=== PATIENT | female | born 1970 | race Caucasian/White ===

== ENCOUNTER → 2018-01-17 16:45 | Outpatient (CLI) | payer BC, SELFPAY ==
[2018-01-17 17:35] LABS: Anion Gap 5.3 mEq/L (5-15); Blood Urea Nitrogen 8 mg/dL (7-18); Calcium 9.1 mg/dL (8.5-10.1); Carbon Dioxide 34 mmol/L (21.0-32.0); Chloride 101 mmol/L (98-107); Creatinine,Serum 0.89 mg/dL (0.55-1.02); Estimated Glomerular Filt Rate 67 ml/min (>60); GFR (African American) 82 ML/MIN (>60); Glucose 95 mg/dL (74-106); Potassium 3.3 mmoL/L (3.5-5.1); Sodium 137 mmol/L (136-145)
== END ==
PROVIDERS: PCP Nurse Practitioner Family; Visit Provider Internal Medicine Adolescent Medicine
DX: R55 Syncope and collapse (principal)
CPT/HCPCS: 36415; 80048

== ENCOUNTER → 2018-12-08 12:32 | Outpatient (CLI) | payer BC, SELFPAY ==
[2018-12-08 14:36] LABS: Alanine Aminotransferase 36 U/L (12-78); Albumin Level 3.7 gm/dL (3.4-5.0); Alkaline Phosphatase 54 U/L (46-116); Anion Gap 9.4 mEq/L (5-15); Aspartate Amino Transferase 15 U/L (15-37); Bilirubin,Total 0.4 mg/dL (0.2-1.0); Blood Urea Nitrogen 12 mg/dL (7-18); Calcium 9.4 mg/dL (8.5-10.1); Carbon Dioxide 34 mmol/L (21.0-32.0); Chloride 99 mmol/L (98-107); Chol/HDL Ratio 3.3 (1-3.5); Cholesterol 231 mg/dL (140-200); Creatinine,Serum 1.07 mg/dL (0.55-1.02); Estimated Glomerular Filt Rate 54 ml/min (>60); GFR (African American) 66 ML/MIN (>60); Globulin 3.8 gm/dl (1.3-3.2); Glucose 97 mg/dL (74-106); HDL Cholesterol 69 mg/dL (29-89); LDL Cholesterol 135 mg/dL (0-130); Potassium 3.4 mmoL/L (3.5-5.1); Sodium 139 mmol/L (136-145); Total Protein,Serum 7.5 gm/dL (6.4-8.2); Triglycerides 133 mg/dL (30-200); VLDL Cholesterol 27 mg/dL (0-40)
== END ==
PROVIDERS: Visit Provider Nurse Practitioner Family
DX: Z00.00 Encounter for general adult medical examination without abnormal findings (principal)
CPT/HCPCS: 36415; 80053; 80061

== ENCOUNTER → 2019-09-04 10:42 | Outpatient (CLI) | payer BC, SELFPAY ==
[2019-09-04 11:00] LABS: Basophils # 0.1 K/mm3 (0-0.2); Basophils % 1.6 % (0.1-2.0); Eosinophils % 0.3 % (0.1-12.0); Hemoglobin 12.7 g/dL (12.2-16.2); Lymphocytes % 38.1 % (10-50); Mean Corpuscular HGB Conc 32.7 g/dL (31.8-35.4); Mean Corpuscular Hemoglobin 28.7 pg (27.0-31.2); Mean Corpuscular Volume 87.9 fl (81-99); Mean Platelet Volume 7.3 fl (7.4-10.4); Monocytes # 0.3 K/mm3 (0.1-1.0); Neutrophils # 2.9 K/mm3 (1.8-7.8); Neutrophils % 54.1 % (37.0-80.0); Platelet Count 342 K/mm3 (142-424); Red Blood Count 4.44 M/mm3 (4.20-5.40); Red Cell Distribution Width 12.8 % (11.5-17.5); White Blood Count 5.3 K/mm3 (4.8-10.8)
[2019-09-04 12:19] LABS: Chloride 100 mmol/L (98-107)
[2019-09-04 12:20] LABS: Potassium 3.6 mmoL/L (3.5-5.1); Sodium 139 mmol/L (136-145)
[2019-09-04 12:22] LABS: Alanine Aminotransferase 24 U/L (12-78); Anion Gap 9.6 mEq/L (5-15); Aspartate Amino Transferase 27 U/L (14-36); Blood Urea Nitrogen 16 mg/dl (7-17); Carbon Dioxide 33 mmol/L (22.0-30.0); Estimated Glomerular Filt Rate 58 ml/min (>60); GFR (African American) 71 ML/MIN (>60)
[2019-09-04 12:23] LABS: Albumin Level 4.2 g/dl (3.5-5.0); Albumin/Globulin Ratio 1.4 (1.1-1.8); Alkaline Phosphatase 58 U/L (38-126); Bilirubin,Total 0.3 mg/dl (0.2-1.3); Calcium 9.9 mg/dl (8.4-10.2); Chol/HDL Ratio 2.8 (1-3.5); Cholesterol 201 mg/dl (140-200); Glucose 110 mg/dl (74-100); HDL Cholesterol 71 mg/dl (40-60); Total Protein,Serum 7.2 g/dl (6.3-8.2); Triglycerides 142 mg/dl (30-150); VLDL Cholesterol 28 mg/dL (0-40)
[2019-09-04 12:34] LABS: Direct LDL Cholesterol 105.55 mg/dL (100-129)
== END ==
PROVIDERS: Visit Provider Nurse Practitioner Family
DX: R60.9 Edema, unspecified (principal); E78.5 Hyperlipidemia, unspecified
CPT/HCPCS: 36415; 80053; 80061; 85025

== ENCOUNTER 2019-11-26 11:00 | Outpatient (RCR) | payer BC, SELFPAY ==
--- NOTE | 2019-09-04 10:28 | HMH.PTOPEV ---
PT Outpatient Evaluation Rehab PT Outpatient Evaluation Start: 09/04/19 09:11 Freq: Status: Active Protocol: Document 09/04/19 09:11 ERIC (Rec: 09/04/19 10:28 ERIC [id number]) Electronically Signed By Floyd Edwards, PT 09/04/19 09:11 Outpatient Therapy Subjective History Subjective History Pt reports h/o chronic LBP, R sided, for the last ~2 yrs ' since I had to wear a walking boot for a chronic foot issue' . Pt reports exacerbation of R sided LBP over the last ~4 weeks with radicular s/s from hip to mid thigh (lateral). Pt also reports point tenderness at R grt tro., and inability to tolerate R sidelying. Chief Complaint Pain,Stiff Symptom Type Ache,Sharp,Dull Symptoms Relieved By OTC Meds Symptoms Aggravated By Bending/Stooping,Physical Activity,Twisting,Lifting Prior Functional Limitations Lifting Current Functional Limitations Lifting,Housework,Recreation Activity,Walking Symptom Description Constant but Variable Level of pain today (0-10) 7 Pain scale - at its best (0-10) 3 Pain scale - at its worst (0-10) 8 Lumbopelvic Eval Posture Thoracic Spine Posture Standing Position Neutral Lumbar Spine Posture Standing Position Neutral Assistive device Assistive Devices None / NA Gait Observation General Gait Pattern Observation No Deviations/Normal Palapation tenderness left paraspinal tenderness Yes: 1-2/4 right lumbar spinal tenderness Yes: 1/4 paraspinal tenderness Yes: 3/4 buttock tenderness Yes: 3/4 Lumbar/Sacral Palpation Findings Tenderness,Trigger Point Accessory Movement L-spine Vertebrae Accessory Movements Central P/A Lillian that Elicit Symptoms S1 right Range of Motion Lumbar Spine Active Flexion Range of 0-35 Motion (degrees) Lumbar Spine Active Extension Range of 0-15 Motion (degrees) Left Lumbar Spine Lateral Flexion Active 0-20 Range of Motion (degrees) Right Lumbar Spine Lateral Flexion 0-15 Active Range of Motion (degrees) Lumbar Spine ROM Limitations Pain Manual Muscle Test Right Knee Extension Strength Grade 5 Normal Knee Flexion Strength Grade 4- Good- Hip Flexion Strength Grade 4- Good- Hip Abduction Strength Grade 3+ Fair+ Hip Adduction Strength Grade 4 Good Hip External Rotation Strength Grade 4- Good- Hip Internal Rotation Strength Grade 4- Good-
--- NOTE | 2019-10-02 13:39 | HMH.RHREAS ---
Rehab Reassessment Rehab OP Re-assessment Start: 10/02/19 12:58 Freq: Status: Active Protocol: Document 10/02/19 13:29 ERIC (Rec: 10/02/19 13:38 [email or web address] [id number]) Electronically Signed By Floyd Edwards, PT 10/02/19 13:29 Rehab Re-assessment Subjective Subjective PT REPORTS 4/10 R HIP PAIN ON VAS W/ACTIVITY, AND FEELS 50- 60% BETTER OVERALL SINCE I EVAL Objective Objective Notes AROM: L-SPINE FLX 0-50, EXT 0- 20, B SB 0-30 MMT: R HIP FLX 4-4+/5, HIP ADD /EXT/ABD 4/5, HIP IR/ER 4/5 TTP: R PIRI 1-2/4, R LUMBAR PARA 0-1/4 Assessment Progress Assessment Progressing as Expected Assessment Notes PT W/IMPROVED STRENGTH, ROM, ADN TTP Patient goals met STG'S 10/23 LTG'S 07/27 Goals Not Met LTG'S 11/26 Plan Plan PT TO CONT. W/SKILLED P.T. TO MAKE FURTHER IMPROVEMENTS IN AROM, STRENGTH, AND TTP TO ALLOW FOR OPTIMAL FUNCTION Frequency of Therapy 1-2X/WK Duration of therapy 3-4 WKS Time and Billing Re-Eval Time 15 Re-Eval Billing Units 1 PHYSICIAN CERTIFICATION: I certify the specified therapy services for Chiam Sevilla are required, authorized, and reviewed every 30 days.
--- NOTE | 2019-11-03 11:19 | HMH.RHREAS ---
Rehab Reassessment Rehab OP Re-assessment Start: 10/02/19 12:58 Freq: Status: Active Protocol: Document 11/03/19 10:58 ERIC (Rec: 11/03/19 11:19 ERIC [id number]) Electronically Signed By Floyd Edwards, PT 11/03/19 10:58 Rehab Re-assessment Subjective Subjective PT REPORTS SLIGHT IMPROVEMENT IN LBP/R HIP PAIN SINCE LAST REASSESS. @2-3/10 ON VAS, AND AGAIN FEELS ~60% BETTER OVERALL Objective Objective Notes AROM: L-SPINE FLX 0-50, EXT 0- 25, B SB 0-30 MMT: R HIP FLX 4-4+/5, HIP ADD /EXT/ABD 4/5, HIP IR/ER 4/5 TTP: R PIRI 1-2/4, R LUMBAR PARA 0-4 Assessment Progress Assessment Slower Than Expected Assessment Notes PT W/SLIGHT IMPROVEMENT IN L- SPINE AROM Patient goals met STG'S 10/23 LTG'S 08/27 Goals Not Met LTG'S 10/27 Plan Plan PT TO CONT. W/SKILLED P.T. TO MAKE FURTHER IMPROVEMENTS IN AROM, STRENGTH, AND TTP TO ALLOW FOR OPTIMAL FUNCTION Frequency of Therapy 1-2X/WK Duration of therapy 3-4 WKS Time and Billing Re-Eval Time 15 Re-Eval Billing Units 1 PHYSICIAN CERTIFICATION: I certify the specified therapy services for Chaim Sevilla are required, authorized, and reviewed every 30 days.
== END 2019-11-26 11:05 | disposition home or self-care (01) ==
LOC: PT 11:00
PROVIDERS: PCP Nurse Practitioner Family; Visit Provider Nurse Practitioner Family
DX: M53.3 Sacrococcygeal disorders, not elsewhere classified (principal); M70.61 Trochanteric bursitis, right hip
CPT/HCPCS: 20560; 20561; 97010; 97012; 97014; 97033; 97035; 97110; 97140; 97163; 97164; G0283

== ENCOUNTER → 2020-07-04 13:03 | Outpatient (CLI) | payer BC, SELFPAY ==
[2020-07-04 14:09] LABS: Hemoglobin A1C 5.3 % (4.0-6.0)
[2020-07-04 14:20] LABS: Chloride 100 mmol/L (98-107); Potassium 4.3 mmoL/L (3.5-5.1); Sodium 139 mmol/L (136-145)
[2020-07-04 14:22] LABS: Blood Urea Nitrogen 14 mg/dl (7-17); Estimated Glomerular Filt Rate 52 ml/min (>60); GFR (African American) 63 ML/MIN (>60)
[2020-07-04 14:23] LABS: Alanine Aminotransferase 17 U/L (12-78); Albumin Level 4.5 g/dl (3.5-5.0); Albumin/Globulin Ratio 1.3 (1.1-1.8); Alkaline Phosphatase 70 U/L (38-126); Anion Gap 7.3 mEq/L (5-15); Aspartate Amino Transferase 26 U/L (14-36); Bilirubin,Total 0.5 mg/dl (0.2-1.3); Carbon Dioxide 36 mmol/L (22.0-30.0); Cholesterol 226 mg/dl (140-200); Globulin 3.4 g/dL (1.3-3.2); Total Protein,Serum 7.9 g/dl (6.3-8.2); Triglycerides 187 mg/dl (30-150); VLDL Cholesterol 37 mg/dL (0-40)
[2020-07-04 14:24] LABS: Calcium 10.3 mg/dl (8.4-10.2); Chol/HDL Ratio 3.2 (1-3.5); Glucose 109 mg/dl (74-100); HDL Cholesterol 71 mg/dl (40-60)
[2020-07-04 14:35] LABS: Direct LDL Cholesterol 101.63 mg/dL (100-129)
[2020-07-04 14:54] LABS: Thyroid Stimulating Hormone 1.08 uIU/mL (0.465-4.68)
[2020-07-04 14:58] LABS: Basophils # 0.1 K/mm3 (0-0.2); Basophils % 1.1 % (0.1-2.0); Eosinophils % 0.2 % (0.1-12.0); Hematocrit 41.8 % (37.0-47.0); Hemoglobin 13.6 g/dL (12.2-16.2); Lymphocytes # 2.1 K/mm3 (0.7-4.5); Lymphocytes % 36.4 % (10-50); Mean Corpuscular HGB Conc 32.6 g/dL (31.8-35.4); Mean Corpuscular Hemoglobin 28.9 pg (27.0-31.2); Mean Corpuscular Volume 88.6 fl (81-99); Mean Platelet Volume 7.4 fl (7.4-10.4); Monocytes # 0.3 K/mm3 (0.1-1.0); Monocytes % 5.7 % (1.7-9.3); Neutrophils # 3.3 K/mm3 (1.8-7.8); Neutrophils % 56.7 % (37.0-80.0); Platelet Count 375 K/mm3 (142-424); Red Blood Count 4.72 M/mm3 (4.20-5.40); Red Cell Distribution Width 13.3 % (11.5-17.5); White Blood Count 5.7 K/mm3 (4.8-10.8)
== END ==
PROVIDERS: Visit Provider Nurse Practitioner Family
DX: R60.9 Edema, unspecified (principal); R73.9 Hyperglycemia, unspecified
CPT/HCPCS: 36415; 80053; 80061; 83036; 84443; 85025

== ENCOUNTER 2020-08-01 16:57 | Emergency (ER) | payer BC, SELFPAY ==
[2020-08-01 17:23] VITALS: BP 113/40; PULSE 76; RESP 20; TEMP 36.7; O2SAT 98; BMI 29.9
--- NOTE | 2020-08-01 17:23 | XR_ITS ---
PROCEDURE: XR FEMUR LT 2V CLINICAL INDICATION: DOG PULLED HER Pain COMPARISON: No exams were available for comparison FINDINGS: No fracture or dislocation. No lytic or blastic change. There is normal mineralization. The joint spaces are well-preserved. No significant degenerative/arthritic changes. No erosive changes evident. Other findings:None. IMPRESSION: No acute findings. Dictated by: Dustin Lincoln MD 08/01/2020 20:24 Dustin Lincoln MD in [place] 08/01/2020 20:24
--- NOTE | 2020-08-01 17:55 | HMH.EDUTC ---
[facility] [place] Disposition Clinical Impression: Hamstring muscle strain Qualifiers: Encounter type: initial encounter Laterality: left Qualified Code(s): S76.312A - Strain of muscle, fascia and tendon of the posterior muscle group at thigh level, left thigh, initial encounter Disposition: Home, Self-Care Condition on Discharge: Good Instructions: Hamstrings Strain, DI for Hamstring Strain Additional Instructions: *weight bearing as tolerated *RICE, Rest the extremity, Ice 15-20 minutes 3-4 times daily, Compress- wear the reji wrap as discussed as much as possible to help reduce swelling and pain, Elevate the extremity when at rest *Reji wrap is for support and help control swelling, use it except in the shower. Be sure that is not to tight but not to loose either *Elevate when resting *Ibuprofen every 6-8 hours as needed for pain an inflammation if you can take it if not or If need something more can take Tylenol in between doses of Ibuprofen to help Immediately follow up with your family doctor for new or worsening of symptoms, or no noticeable improvement over the next 3-5 days Take a break from strenuous activities to allow the injury to heal. Use crutches to avoiding putting your full weight on your injured leg. Apply ice packs several times a day to relieve pain and reduce swelling. Wrap the injured area with a compression bandage or wear compression shorts to minimize swelling. Rest with your leg elevated above the level of your heart, if possible, to improve drainage and minimize swelling. Take an [id number] pain medication, such as ibuprofen (Advil, Motrin IB, others) or acetaminophen (Tylenol, others), to reduce pain and inflammation Soak in warm water and epson salt may help with pain and tenderness Return if needed Straight to ER if any life threatening symptoms Referrals: Mali Guerrero APRN [Primary Care Provider] - As needed Time of Disposition: 18:00 Medical Decision Making - Nelson Inquiry Pt receiving controlled substance: No Nelson was queried for this patient: No Vital Signs: 08/01/20 17:23 08/01/20 18:20 Temperature 98.0 F 98.0 F Temperature Source Oral Pulse Rate 76 Pulse Rate [Right Brachial] 76 Respiratory Rate 20 20 Blood Pressure 113/40 L Blood Pressure [Right Arm] 113/40 L Blood Pressure Mean [Right Arm] 64 Blood Pressure Source [Right Arm] Automatic Cuff Blood Pressure Position [Right Arm] Sitting 02 Sat by Pulse Oximetry 98 Oxygen Delivery Method Room Air Orders (Tests/Meds): ORDERS Category Date Time Status XR femur LT 2V Stat Exams 08/01/20 17:23 Taken - Radiology Data #1 Image(s): Femur Image Reviewed: Yes I reviewed the patient's radiology image Preliminary Findings: No Fracture Seen [facility] [place] HPI - General Stated complaint: AO03/13@1400 fall, left leg injury Time Seen by Provider: 08/01/20 17:55 Mode of Arrival: Ambulatory Source of Information: Patient Limitations: No Limitations Description of Symptoms (Recalled from Triage Doc. by RN): PATIENT STATES SHE WAS WALKING HER DOG WHEN IT STARTED RUNNING AND JERKED HER LEFT LEG. C/O PAIN TO POSTERIOR UPPER LEFT LEG. HEENT Symptoms (Recalled from RN notes): No Resp Symptoms (Recalled from RN notes): No Skin Symptoms (Recalled from RN notes): No MS Symptoms (Recalled from RN notes): Yes Functional Status (Recalled from RN notes): WNL - History of Present Illness Provider Complaint: Patient state that she was walking her dog a couple days ago when it jerked her as it started running and she felt something pull in the back of her left upper leg States that ever since she has been having pain in the back of her left upper leg and hurts worse with walking or bearing of weight States that she feels like she may have pulled a muscle but wanted to get it checked - Related Data Home Medications Medication Instructions Recorded Confirmed bupropion HCl 300 mg 24 hr tablet, 300 mg PO DAILY 01/09/19 02/23/19 extend
[2020-08-01 18:20] VITALS: BP 113/40; PULSE 76; RESP 20; TEMP 36.7; O2SAT 98
== END 2020-08-01 18:23 | disposition home or self-care (01) ==
PROVIDERS: Emergency Provider Nurse Practitioner; PCP Nurse Practitioner Family
DX: S76.312A Strain of muscle, fascia and tendon of the posterior muscle group at thigh level, left thigh, initial encounter (principal); W01.0XXA Fall on same level from slipping, tripping and stumbling without subsequent striking against object, initial encounter; Y93.K1 Activity, walking an animal; Y92.89 Other specified places as the place of occurrence of the external cause; I10 Essential (primary) hypertension; F41.9 Anxiety disorder, unspecified
CPT/HCPCS: 73552; 99202; G0463

== ENCOUNTER 2020-09-07 09:00 | Outpatient (RCR) | payer BC, SELFPAY ==
--- NOTE | 2020-08-09 15:57 | HMH.OTOPEV ---
OT Inpatient Evaluation Rehab OT Outpatient Eval Start: 08/09/20 15:26 Freq: Status: Active Protocol: Document 08/09/20 15:27 RMARSHALL (Rec: 08/09/20 15:57 [facility] [id number]) Electronically Signed By Ray Pandey OT 08/09/20 15:27 Outpatient Therapy Subjective History Subjective History Pt seen this date for initial evaluation. Pt reports pain in her L upper arm, she reports there is not an intial event causing this. Pt reports the pain began ~3-4 months prior. Pt reports she received a steroid injection 08/01 along with muscle relaxers; these do not seem to be helping the pain. 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 Chief Complaint Pain Symptom Type Ache,Throb,Sharp,Dull,Stabbing Symptoms Relieved By Rest/Positioning Symptoms Aggravated By Physical Activity,Lifting Prior Functional Limitations None Current Functional Limitations Reaching,Lifting,Housework, Dressing,Driving,Sleeping Symptom Description Constant but Variable, Intermittent,Activity Dependent Level of pain today (0-10) 2 Pain scale - at its best (0-10) 2 Pain scale - at its worst (0-10) 6 Shoulder/Elbow Eval Shoulder Objective Measurements Shoulder ROM Left Shoulder Abduction Active Range of 135 Motion (degrees) Shoulder Flexion Active Range of Motion 115 (degrees) Query Text: Shoulder External Rotation Active Range 30 of Motion (degrees) Shoulder Internal Rotation Active Range 25 of Motion (degrees) Shoulder MMT Shoulder Abduction Strength Grade 3- Fair- Shoulder Flexion Strength Grade 3- Fair- Shoulder External Rotation Strength 3- Fair- Grade Shoulder Internal Rotation Strength 3- Fair- Grade Shoulder Strength Patient Testing Sitting Position Shoulder Special Tests Shoulder Empty Can (Supraspinatus) Test Positive Left Shoulder Don-Bereket Impingement Positive Left Test Shoulder Neer Impingement Test Positive Left Elbow Objective Measurements OT Outpatient Assessment Impairments Problems/Impairments Palpation Tenderness,Impaired Range of Motion,Impaired
--- NOTE | 2020-09-07 10:02 | HMH.RHREAS ---
Rehab Reassessment Rehab OP Re-assessment Start: 09/07/20 09:55 Freq: Status: Active Protocol: Document 09/07/20 09:56 SHAMIKA (Rec: 09/07/20 10:02 SHAMIKA [id number]) Electronically Signed By Ray Pandey OT 09/07/20 09:56 Rehab Re-assessment Subjective Subjective Out to the side really hurts. Objective Objective Notes Pt continues to be seen weekly in order to address L shoulder deficits. Each session, pt engages in L shoulder AROM, AAROM, and strengthening exercises. Pt does receive modalities in order to decrease pain/ inflammation. Assessment Progress Assessment Slower Than Expected Assessment Notes Pt reports she is still having pain at a 5/10 at worst. Pt explains moving her shoulder in abduction is where she has the worst pain. Pt does not demonstrate improvement with AROM. Pt demonstrates severe guarding with the upper trap. Therapist recommends pt return to her PCP in hopes of scheduling an MRI and being referred to an ortho. Current L shoulder AROM Flex: 105 degrees; 3 Abd: 95 degrees; 3 ER: 55 degrees; 3 Ir: 30 degrees; 3 Patient goals met n/a Goals Not Met See below Revised Goals hold treatment at this time for re-evaluation by her PCP Plan Plan Hold therapy due to limited visits. Pt return to PCP for re-evaluation and possible MRI or refer to ortho. Time and Billing Re-Eval Time 10 Re-Eval Billing Units 1 PHYSICIAN CERTIFICATION: I certify the specified therapy services for Chaim Sevilal are required, authorized, and reviewed every 30 days.
--- NOTE | 2020-09-07 10:11 | HMH.RHREAS ---
Rehab Reassessment Rehab OP Re-assessment Start: 09/07/20 09:55 Freq: Status: Active Protocol: Document 09/07/20 09:56 SHAMIKA (Rec: 09/07/20 10:02 SHAMIKA [id number]) Electronically Signed By Ray Pandey OT 09/07/20 09:56 Rehab Re-assessment Subjective Subjective Out to the side really hurts. Objective Objective Notes Pt continues to be seen weekly in order to address L shoulder deficits. Each session, pt engages in L shoulder AROM, AAROM, and strengthening exercises. Pt does receive modalities in order to decrease pain/ inflammation. Assessment Progress Assessment Slower Than Expected Assessment Notes Pt reports she is still having pain at a 5/10 at worst. Pt explains moving her shoulder in abduction is where she has the worst pain. Pt does not demonstrate improvement with AROM. Pt demonstrates severe guarding with the upper trap. Therapist recommends pt return to her PCP in hopes of scheduling an MRI and being referred to an ortho. Current L shoulder AROM Flex: 105 degrees; 3 Abd: 95 degrees; 3 ER: 55 degrees; 3 Ir: 30 degrees; 3 Patient goals met STG 3 & 5 Goals Not Met See below Revised Goals LTG 1-5 STG 1, 2, & 4 Plan Plan Hold therapy due to limited visits. Pt return to PCP for re-evaluation and possible MRI or refer to ortho. Frequency of Therapy 2x's a week Duration of therapy 4 more weeks Time and Billing Re-Eval Time 10 Re-Eval Billing Units 1 PHYSICIAN CERTIFICATION: I certify the specified therapy services for Chaim Sevilla are required, authorized, and reviewed every 30 days.
== END 2020-09-07 09:05 | disposition home or self-care (01) ==
LOC: OT 09:00
PROVIDERS: PCP Nurse Practitioner Family; Visit Provider Internal Medicine Adolescent Medicine
DX: M79.622 Pain in left upper arm (principal); M25.512 Pain in left shoulder
CPT/HCPCS: 97014; 97035; 97110; 97140; 97164; 97166; G0283

== ENCOUNTER → 2020-10-05 08:29 | Outpatient (CLI) | payer BC, SELFPAY ==
--- NOTE | 2020-10-05 08:39 | XR_ITS ---
PROCEDURE: XR SHOULDER LT MIN 2V CLINICAL INDICATION: left shoulder pain COMPARISON: No exams were available for comparison FINDINGS: No fracture or dislocation. No lytic or blastic change. There is normal mineralization. The joint spaces are well-preserved. No significant degenerative/arthritic changes. No erosive changes evident. Other findings:None. IMPRESSION: No acute findings. Dictated by: Dustin Lincoln MD 10/05/2020 12:28 Dustin Lincoln MD in [place] 10/05/2020 12:28
== END ==
PROVIDERS: PCP Internal Medicine Adolescent Medicine; Visit Provider Orthopaedic Surgery
DX: M25.512 Pain in left shoulder (principal)
CPT/HCPCS: 73030

== ENCOUNTER 2020-12-22 10:00 | Outpatient (RCR) | payer BC, SELFPAY ==
--- NOTE | 2020-10-10 15:56 | HMH.OTOPEV ---
OT Inpatient Evaluation Rehab OT Outpatient Eval Start: 10/10/20 15:32 Freq: Status: Active Protocol: Document 10/10/20 15:32 LOBRUCE (Rec: 10/10/20 15:38 RICKSHANICE [id number]) Electronically Signed By Narcisa Sheridan, OT 10/10/20 15:32 Outpatient Therapy Subjective History Subjective History 50 year female referred to skilled OP OT services for left frozen shoulder. Patient previously recieved skilled OP OT services from 08/09/20-09/07 for left shoulder pain. Patient made no progress with L UE AROM with OT referring her back to PCP for further imaging and ortho evaluation. Patient's AROM has decline with ABD, IR And ER since last OT visit on 09/07/20. Chief Complaint Pain Symptom Type Sharp Symptoms Relieved By Nothing Symptoms Aggravated By Physical Activity Prior Functional Limitations None Current Functional Limitations Reaching,Lifting,Recreation Activity Symptom Description Intermittent Level of pain today (0-10) 1 Pain scale - at its best (0-10) 1 Pain scale - at its worst (0-10) 8 Shoulder/Elbow Eval Shoulder Objective Measurements Shoulder ROM Left Shoulder Abduction Active Range of 72 Motion (degrees) Shoulder Flexion Active Range of Motion 115 (degrees) Query Text: Shoulder External Rotation Active Range 10 of Motion (degrees) Shoulder Internal Rotation Active Range 25 of Motion (degrees) pain with active ROM shoulder exam left standard Shoulder MMT Shoulder Abduction Strength Grade 2+ Poor+ Shoulder Extension Strength Grade 2+ Poor+ Shoulder Flexion Strength Grade 2+ Poor+ Shoulder Horizontal Abduction Strength 2+ Poor+ Grade Infraspinatus/Teres Minor Strength Grade 2+ Poor+ Shoulder External Rotation Strength 2+ Poor+ Grade Shoulder Internal Rotation Strength 2+ Poor+ Grade Elbow Objective Measurements OT Outpatient Assessment Impairments Problems/Impairments Impaired Range of Motion, Impaired Strength,Subjective C /O Pain Prognosis Rehab Potential Good Clinical Impression Consistent with Diagnosis Yes Short Term Goals Number of Weeks 2 Increase Range of Motion Yes: L UE AROM of salma
== END 2020-12-22 10:05 | disposition home or self-care (01) ==
LOC: OT 10:00
PROVIDERS: PCP Internal Medicine Adolescent Medicine; Visit Provider Orthopaedic Surgery
DX: M75.02 Adhesive capsulitis of left shoulder (principal)
CPT/HCPCS: 97010; 97014; 97035; 97110; 97140; 97164; 97165; 97530; G0283

== ENCOUNTER → 2020-12-28 13:14 | Outpatient (CLI) | payer BC, SELFPAY ==
--- NOTE | 2020-12-28 13:16 | US_ITS ---
PROCEDURE: US KIDNEY CLINICAL INDICATION: ABN RESULTS OF KIDNEY FUNCTION STUDIES COMPARISON: No exams were available for comparison FINDINGS: The right kidney is 10 x 4 x 4 cm. The left kidney is 10 x 5 4 cm. No hydronephrosis, mass, perinephric fluid collection, or cortical thinning. IMPRESSION: Unremarkable bilateral renal ultrasound Dictated by: Dustin Lincoln MD 12/29/2020 13:52 Dustin Lincoln MD in [place] 12/29/2020 13:52
== END ==
PROVIDERS: PCP Internal Medicine Adolescent Medicine; Visit Provider Nurse Practitioner Family
DX: R94.4 Abnormal results of kidney function studies (principal)
CPT/HCPCS: 76770

== ENCOUNTER → 2021-01-06 07:20 | Outpatient (CLI) | payer BC, SELFPAY ==
[2021-01-06 07:23] LABS: Microscopic, Urine URINE MICROSCOPIC (MICROSCOPIC)
[2021-01-06 07:39] LABS: Appearance,Urine CLEAR (Clear); Bilirubin,Urine Negative (Negative); Blood, Urine Negative (Negative); Color,Urine YELLOW (Yellow); Glucose,Urine (UA) Negative (Negative); Ketones,Urine Negative (Negative); Leukocyte Esterase,Urine Negative (Negative); Nitrate,Urine Negative (Negative); PH,Urine 6.5 (5.0-8.5); Protein,Urine Negative (Negative); Urobilinogen,Urine 0.2 EU/dl (0.2)
[2021-01-06 07:48] LABS: Basophils # 0.1 K/mm3 (0-0.2); Basophils % 1.1 % (0.1-2.0); Eosinophils % 0.4 % (0.1-12.0); Hematocrit 37.8 % (37.0-47.0); Hemoglobin 12.6 g/dL (12.2-16.2); Lymphocytes # 2.5 K/mm3 (0.7-4.5); Lymphocytes % 42.6 % (10-50); Mean Corpuscular HGB Conc 33.3 g/dL (31.8-35.4); Mean Corpuscular Hemoglobin 28.8 pg (27.0-31.2); Mean Corpuscular Volume 86.3 fl (81-99); Mean Platelet Volume 7.5 fl (7.4-10.4); Monocytes # 0.4 K/mm3 (0.1-1.0); Monocytes % 5.9 % (1.7-9.3); Neutrophils # 2.9 K/mm3 (1.8-7.8); Platelet Count 327 K/mm3 (142-424); Red Blood Count 4.38 M/mm3 (4.20-5.40); Red Cell Distribution Width 13.5 % (11.5-17.5); White Blood Count 5.9 K/mm3 (4.8-10.8)
[2021-01-06 08:12] LABS: Chloride 104 mmol/L (98-107); Potassium 3.5 mmoL/L (3.5-5.1); Sodium 143 mmol/L (136-145)
[2021-01-06 08:15] LABS: Alanine Aminotransferase 18 U/L (12-78); Albumin Level 3.9 g/dl (3.5-5.0); Albumin/Globulin Ratio 1.3 (1.1-1.8); Alkaline Phosphatase 51 U/L (38-126); Anion Gap 9.5 mEq/L (5-15); Aspartate Amino Transferase 24 U/L (14-36); Bilirubin,Total 0.2 mg/dl (0.2-1.3); Blood Urea Nitrogen 17 mg/dl (7-17); Calcium 9.3 mg/dl (8.4-10.2); Carbon Dioxide 33 mmol/L (22.0-30.0); Estimated Glomerular Filt Rate 52 ml/min (>60); GFR (African American) 63 ML/MIN (>60); Globulin 2.9 g/dL (1.3-3.2); Glucose 116 mg/dl (74-100); Total Protein,Serum 6.8 g/dl (6.3-8.2)
[2021-01-06 08:15] LABS: Chol/HDL Ratio 2.8 (1-3.5); Cholesterol 220 mg/dl (140-200); HDL Cholesterol 80 mg/dl (40-60); Triglycerides 100 mg/dl (30-150); VLDL Cholesterol 20 mg/dL (0-40)
[2021-01-06 08:26] LABS: Direct LDL Cholesterol 103.18 mg/dL (100-129)
[2021-01-06 08:47] LABS: Thyroid Stimulating Hormone 2.58 uIU/mL (0.465-4.68)
[2021-01-06 08:51] LABS: 25-OH Vitamin D, Total 44.5 ng/mL (30-100)
== END ==
PROVIDERS: Internal Medicine Adolescent Medicine; Visit Provider Nurse Practitioner Family
DX: R94.4 Abnormal results of kidney function studies (principal); R79.89 Other specified abnormal findings of blood chemistry; E78.5 Hyperlipidemia, unspecified; L65.9 Nonscarring hair loss, unspecified; E66.3 Overweight; Z68.28 Body mass index [BMI] 28.0-28.9, adult
CPT/HCPCS: 36415; 80053; 80061; 81001; 82306; 84443; 85025

== ENCOUNTER → 2021-05-29 13:39 | Outpatient (CLI) | payer BC, SELFPAY | PROVIDERS: PCP Radiology Diagnostic Radiology; Visit Provider Nurse Practitioner | DX: U07.1 COVID-19 (principal) | CPT/HCPCS: C9803; U0003; U0005 ==

== ENCOUNTER 2021-07-07 15:54 | Emergency (ER) | payer BC, SELFPAY ==
[2021-07-07 16:00] VITALS: BP 122/51; PULSE 78; RESP 20; TEMP 36.7; O2SAT 98; BMI 28.3
--- NOTE | 2021-07-07 16:27 | HMH.EDUTC ---
[facility] [place] Clinical Impression: Shingles Qualifiers: Herpes zoster complications: without complications Qualified Code(s): B02.9 - Zoster without complications Disposition: Home, Self-Care Condition on Discharge: Good Instructions: Shingles, DI for Shingles, Acyclovir Additional Instructions: Take medication as prescribed Make sure to drink plenty of fluids Antiviral medicine helps decrease symptoms and healing time. They may also decrease your risk of developing nerve pain. You will need to start taking them within 3 days of the start of symptoms to prevent nerve pain NSAIDs , such as ibuprofen, help decrease swelling, pain, and fever Acetaminophen decreases pain and fever Keep your rash clean and dry. Cover your rash with a bandage or clothing. Do not use bandages that stick to your skin. The sticky part may irritate your skin and make your rash last longer. Wash your hands often. Wash your hands several times each day. Wash after you use the bathroom, change a child's diaper, and before you prepare or eat food. Use soap and water every time. Rub your soapy hands together, lacing your fingers. Follow up with your Family Doctor if no improvement or any worsening of symptoms It may take several weeks for your lymph node swelling to go down Straight to ER if any life threatening symptoms Prescriptions: Acyclovir 800 mg PO 5XDAY 7 Days #35 tab Transmission Status: Pending to [id number] Referrals: Wyatt Collazo MD [Primary Care Provider] - As needed Time of Disposition: 16:33 Medical Decision Making - Nelson Inquiry Pt receiving controlled substance: No Nelson was queried for this patient: No Vital Signs: 07/07/21 16:00 Temperature 98.1 F Temperature Source Oral Pulse Rate [Right Brachial] 78 Respiratory Rate 20 Blood Pressure [Right Arm] 122/51 L Blood Pressure Mean [Right Arm] 74 Blood Pressure Source [Right Arm] Automatic Cuff Blood Pressure Position [Right Arm] Sitting 02 Sat by Pulse Oximetry 98 Oxygen Delivery Method Room Air [facility] [place] - General Stated complaint: rash on on forehead, swollen lymph nodes Time Seen by Provider: 07/07/21 16:27 Mode of Arrival: Ambulatory Source of Information: Patient Limitations: No Limitations Description of Symptoms (Recalled from Triage Doc. by RN): PATIENT C/O ITCHY/BURNING RASH TO RIGHT FOREHEAD, RIGHT-SIDED HEADACHE, AND SWOLLEN LYMPH NODES AROUND RIGHT EAR X 1 WEEK HEENT Symptoms (Recalled from RN notes): Yes Resp Symptoms (Recalled from RN notes): No Skin Symptoms (Recalled from RN notes): Yes MS Symptoms (Recalled from RN notes): No Functional Status (Recalled from RN notes): WNL - History of Present Illness Provider Complaint: Patient states that she has been having pain on the right side of her head/forehead area states that it is like a headache State she noticed she was breaking out in blister like rash on her right side of forehead and felt itchy then burned when she would touch it or scratch it and she noticed she was having some swelling in her lymph nodes on right jaw area by her ear and under jaw States that she thinks she may have shingles - Related Data Home Medications Medication Instructions Recorded Confirmed bupropion HCl 300 mg 24 hr tablet, 300 mg PO DAILY 01/09/19 04/26/21 extended release fluoxetine 20 mg capsule 20 mg PO DAILY 01/09/19 04/26/21 trazodone 150 mg tablet 150 mg PO QHS PRN 01/09/19 04/26/21 Sodium, Potassium,Mag Sulfates 177 ml PO DAILY 01/26/19 04/26/21 [Suprep Bowel Prep Kit] fluoxetine 40 mg capsule 40 mg PO cap 01/25/21 04/26/21 pantoprazole 20 mg tablet,delayed ea PO 01/25/21 04/26/21 release triamterene 37.5 1 tab PO tab 01/25/21 04/26/21 mg-hydrochlorothiazide 25 mg tablet Previous Rx's Medication Instructions Recorded Acyclovir 800 mg PO 5XDAY 7 Days #35 tab 07/07/21 Allergies Allergy/AdvReac Type Severity Reaction Status Date / Time cefaclor Allergy Verified 04/26/21 15:15 Ce
[2021-07-07 16:35] VITALS: BP 122/51; PULSE 78; RESP 20; TEMP 36.7; O2SAT 98
== END 2021-07-07 16:40 | disposition home or self-care (01) ==
PROVIDERS: Emergency Provider Nurse Practitioner; PCP Radiology Diagnostic Radiology
DX: B02.9 Zoster without complications (principal); I10 Essential (primary) hypertension
CPT/HCPCS: 99202; G0463

== ENCOUNTER → 2021-08-21 16:19 | Outpatient (CLI) | payer BC, SELFPAY ==
--- NOTE | 2021-08-21 16:23 | XR_ITS ---
PROCEDURE INFORMATION: Exam: XR Chest Exam date and time: 08/21/2021 4:27 PM Age: 51 years old Clinical indication: Cough; Additional info: Cough; Rales TECHNIQUE: Imaging protocol: XR of the chest. Views: 2 views. COMPARISON: CR XR SHOULDER LT MIN 2V 10/05/2020 8:45 AM FINDINGS: Lungs: Patchy right lower lobe region of opacification. Regions of parenchymal scarring versus subsegmental atelectasis left lung base. Pleural spaces: Unremarkable. No pleural effusion. No pneumothorax. Heart/Mediastinum: Unremarkable. No cardiomegaly. Bones/joints: Unremarkable. IMPRESSION: 1. Right lower lobe region of opacification. Findings compatible pneumonia. 2. Postinflammatory scarring right lower lobe.
== END ==
PROVIDERS: PCP Internal Medicine Adolescent Medicine; Visit Provider Nurse Practitioner Family
DX: R05.9 Cough, unspecified (principal); R09.89 Other specified symptoms and signs involving the circulatory and respiratory systems
CPT/HCPCS: 71046

== ENCOUNTER → 2021-09-13 14:41 | Outpatient (CLI) | payer BC, SELFPAY ==
--- NOTE | 2021-09-13 14:48 | XR_ITS ---
FINAL REPORT CLINICAL HISTORY: shoulder pain, frozen shoulder FINDINGS: LEFT SHOULDER Four views were obtained. There is no acute fracture or dislocation. The joint spaces appear normal. No soft tissue abnormality is identified. IMPRESSION: No acute process. Reviewed, Interpreted and Dictated by Chad Ervin MD Transcribed by Mckenzie Desai Authenticated by Chad Ervin MD on 09/13/2021 06:04:16 PM [facility]
== END ==
PROVIDERS: PCP Nurse Practitioner Family; Visit Provider Orthopaedic Surgery
DX: M75.02 Adhesive capsulitis of left shoulder (principal)
CPT/HCPCS: 73030

== ENCOUNTER 2021-11-15 10:00 | Outpatient (RCR) | payer BC, SELFPAY ==
--- NOTE | 2021-09-21 16:08 | HMH.OTOPEV ---
OT Inpatient Evaluation Rehab OT Outpatient Eval Start: 09/21/21 15:25 Freq: Status: Active Protocol: Document 09/21/21 15:26 LOBRUCE (Rec: 09/21/21 15:30 LOBRUCE [id number]) Electronically Signed By Narcisa Sheridan OT 09/21/21 15:26 Outpatient Therapy Subjective History Subjective History 51 year old female referred back to OP OT skilled services for L frozen shoulder. Patient recently was seen by OT from 10/10/20- for L frozen shoulder with 100% recovery. Patient recieved 3 cortisone shots in the left shoulder during that time on , 11/15/20 and 12/14/20. Patient stated having pain return in the L shoulder ~1 month ago with f/u with ortho on 09/13/21. Patient recieve 4th cortisone shot on 09/13/21. Chief Complaint Pain Symptom Type Ache,Burning Symptoms Relieved By Nothing Symptoms Aggravated By Physical Activity Prior Functional Limitations None Current Functional Limitations Reaching,Lifting,Recreation Activity Symptom Description Constant and Continuous Level of pain today (0-10) 2 Pain scale - at its best (0-10) 2 Pain scale - at its worst (0-10) 7 Shoulder/Elbow Eval Shoulder Objective Measurements Shoulder ROM Left Shoulder Abduction Active Range of 135 Motion (degrees) Shoulder Flexion Active Range of Motion 140 (degrees) Query Text: Shoulder External Rotation Active Range 30 of Motion (degrees) Shoulder Internal Rotation Active Range 45 of Motion (degrees) pain with active ROM shoulder exam left standard Shoulder MMT Shoulder Abduction Strength Grade 2+ Poor+ Shoulder Extension Strength Grade 2+ Poor+ Shoulder Flexion Strength Grade 2+ Poor+ Shoulder Horizontal Abduction Strength 2+ Poor+ Grade Shoulder Horizontal Adduction Strength 2+ Poor+ Grade Infraspinatus/Teres Minor Strength Grade 2+ Poor+ Shoulder External Rotation Strength 2+ Poor+ Grade Shoulder Internal Rotation Strength 2+ Poor+ Grade Elbow Objective Measurements OT Outpatient Assessment Impairments Problems/Impairments Impaired Range of Motion, Impaired Strength,Subjective C /O Pain Pr
== END 2021-11-15 10:05 | disposition home or self-care (01) ==
LOC: OT 10:00
PROVIDERS: PCP Nurse Practitioner Family; Visit Provider Orthopaedic Surgery
DX: M75.02 Adhesive capsulitis of left shoulder (principal)
CPT/HCPCS: 97010; 97014; 97110; 97140; 97164; 97165; 97530; G0283

== ENCOUNTER → 2021-12-26 08:22 | Outpatient (CLI) | payer BC, SELFPAY ==
[2021-12-26 08:48] LABS: Basophils # 0.1 K/mm3 (0-0.2); Basophils % 1.8 % (0.1-2.0); Eosinophils % 0.2 % (0.1-12.0); Hematocrit 41.8 % (37.0-47.0); Hemoglobin 13.4 g/dL (12.2-16.2); Lymphocytes # 2.3 K/mm3 (0.7-4.5); Mean Corpuscular Hemoglobin 28.8 pg (27.0-31.2); Mean Corpuscular Volume 90.2 fl (81-99); Mean Platelet Volume 7.5 fl (7.4-10.4); Monocytes # 0.3 K/mm3 (0.1-1.0); Monocytes % 5.7 % (1.7-9.3); Neutrophils # 2.1 K/mm3 (1.8-7.8); Neutrophils % 44.4 % (37.0-80.0); Platelet Count 403 K/mm3 (142-424); Red Blood Count 4.64 M/mm3 (4.20-5.40); Red Cell Distribution Width 13.9 % (11.5-17.5); White Blood Count 4.8 K/mm3 (4.8-10.8)
[2021-12-26 09:21] LABS: Hemoglobin A1C 5.6 % (4.0-6.0)
[2021-12-26 10:01] LABS: Alanine Aminotransferase 25 U/L (12-78); Albumin/Globulin Ratio 1.5 (1.1-1.8); Alkaline Phosphatase 72 U/L (38-126); Anion Gap 6.7 mEq/L (5-15); Aspartate Amino Transferase 30 U/L (14-36); Bilirubin,Total 0.3 mg/dl (0.2-1.3); Blood Urea Nitrogen 12 mg/dl (7-17); Calcium 9.4 mg/dl (8.4-10.2); Carbon Dioxide 30 mmol/L (22.0-30.0); Chloride 104 mmol/L (98-107); Chol/HDL Ratio 3.2 (1-3.5); Cholesterol 214 mg/dl (140-200); Estimated Glomerular Filt Rate 58 ml/min (>60); GFR (African American) 70 ML/MIN (>60); Globulin 2.7 g/dL (1.3-3.2); Glucose 136 mg/dl (74-100); HDL Cholesterol 67 mg/dl (40-60); Potassium 3.7 mmoL/L (3.5-5.1); Sodium 137 mmol/L (136-145); Total Protein,Serum 6.7 g/dl (6.3-8.2); Triglycerides 126 mg/dl (30-150); VLDL Cholesterol 25 mg/dL (0-40)
[2021-12-26 10:33] LABS: Thyroid Stimulating Hormone 2.61 uIU/mL (0.465-4.68)
[2021-12-27 08:33] LABS: Direct LDL Cholesterol 128 mg/dL (100-129)
== END ==
PROVIDERS: PCP Nurse Practitioner Family; Visit Provider Nurse Practitioner Family
DX: Z00.00 Encounter for general adult medical examination without abnormal findings (principal); E78.5 Hyperlipidemia, unspecified; R60.9 Edema, unspecified; E66.9 Obesity, unspecified; Z68.30 Body mass index [BMI] 30.0-30.9, adult
CPT/HCPCS: 36415; 80053; 80061; 83036; 84443; 85025

== ENCOUNTER 2022-08-18 17:41 | Emergency (ER) | payer BC, SELFPAY ==
[2022-08-18 18:00] VITALS: BP 143/58; PULSE 76; RESP 18; TEMP 36.7; O2SAT 98; BMI 31.1
--- NOTE | 2022-08-18 18:14 | EXP.UTC ---
Discharge Plan Disposition Patient Disposition: Home, Self-Care Condition: Good Prescriptions Prescriptions: New ofloxacin 0.3 % drops See Rx Instructions .ROUTE .COMPLEX Qty: 10 0RF Rx Instructions: put 1 drop into affected eye(s) every 3 h x 2 days, then 1 drops 4 times/day days 3-7 azithromycin [azithromycin] 250 mg tablet 250 mg PO DIRECTED Qty: 6 0RF Rx Instructions: Take two (2) tablets on day #1, then one (1) tablet day #2 thru #5 No Action pantoprazole 20 mg tablet,delayed release (DR/EC) PO Label Comments: TAKE 1 TABLET BY MOUTH ONCE DAILY triamterene-hydrochlorothiazid 37.5-25 mg tablet 1 tab PO fluoxetine 40 mg capsule 40 mg PO trazodone 150 mg tablet 150 mg PO QHS PRN (Reason: mood) fluoxetine [Prozac] 20 mg capsule 20 mg PO DAILY bupropion HCl 300 mg tablet extended release 24 hr 300 mg PO DAILY sodium,potassium,mag sulfates 177 ML recon soln 177 ml PO DAILY Rx Instructions: drink entire amount PM before + AM of procedure, 10-12 hr apart acyclovir 800 MG tablet 800 mg PO 5XDAY 7 Days Qty: 35 0RF Referrals Follow up/Referrals: Mali Guerrero APRN [Primary Care Provider] - See instructions Activity Restrictions/Add. Instructions Additional Instructions/Restrictions: Start antibiotics today be sure to take it as ordered with the full length of time although you should start feeling better in 24-48 hours. Change toothbrush and toothpaste 24-48 hours after starting antibiotics Tylenol or Motrin as needed for fever or pain Encourage fluids, water, Gatorade, Powerade, try cold fluids, popsicles, ice cream will make it feel better You are contagious for 24 hours. Avoid kissing anyone, no eating or drinking after anyone. You are contagious. Follow-up the ER for new or worsening symptoms or no noticeable improvement over the next 24-48 hours. Follow-up with PCP this week. contact precautions discussed Clinical Impressions Clinical Impression: Conjunctivitis, Strep sore throat Instructions Patient Instructions: DI for Strep Throat, DI for Conjunctivitis Discharge ED Provider: Dwain ([facility] [place] HPI General Stated complaint: Both eye redness,sore throat Mode of Arrival: Ambulatory Source of Information: Patient Limitations: No Limitations Time Seen by Provider: 08/18/22 18:15 Description of Symptoms (Recalled from Triage Doc. by RN): PATIENT C/O SORE THROAT SINCE SATURDAY AND REDNESS/DRAINAGE TO EYE SINCE LAST NIGHT HEENT Symptoms (Recalled from RN notes): Yes Resp Symptoms (Recalled from RN notes): No Skin Symptoms (Recalled from RN notes): No MS Symptoms (Recalled from RN notes): No Functional Status (Recalled from RN notes): WNL History of Present Illness Provider Complaint: 52 yr old female presents for sore throat since saturday, hoarseness and fortino eye redness with drainage today Related Data Home Medications Medication Instructions Recorded Confirmed bupropion HCl 300 mg 24 hr tablet, 300 mg PO DAILY Depression 01/09/19 11/09/21 extended release fluoxetine 20 mg capsule (Prozac) 20 mg PO DAILY Depression 01/09/19 11/09/21 trazodone 150 mg tablet 150 mg PO QHS PRN mood 01/09/19 11/09/21 sodium,potassium,mag sulfates 17.5 177 ml PO DAILY prep 01/26/19 11/09/21 gram-3.13 gram-1.6 gram oral soln fluoxetine 40 mg capsule 40 mg PO 01/25/21 11/09/21 pantoprazole 20 mg tablet,delayed ea PO 01/25/21 11/09/21 release triamterene 37.5 1 tab PO 01/25/21 11/09/21 mg-hydrochlorothiazide 25 mg tablet Previous Rx's Medication Instructions Recorded acyclovir 800 mg tablet 800 mg PO 5XDAY 7 days #35 tabs 07/07/21 azithromycin 250 mg tablet 250 mg PO DIRECTED #6 tabs 08/18/22 ofloxacin 0.3 % eye drops See Rx Instructions ophthalmic 08/18/22 (eye) .COMPLEX #10 mL Allergies Allergy/AdvReac Type Severity Reaction Status Date / Time cefaclor Allergy Verified 11/09/21 11:04 [facility]
[2022-08-18 18:39] VITALS: BP 143/58; PULSE 76; RESP 18; TEMP 36.7; O2SAT 98
[2022-08-18 18:41] LABS: UTC Strep Screen (Rapid) Negative (Negative)
== END 2022-08-18 18:46 | disposition home or self-care (01) ==
PROVIDERS: Emergency Provider Nurse Practitioner Family; PCP Nurse Practitioner Family
DX: J02.0 Streptococcal pharyngitis (principal); H10.33 Unspecified acute conjunctivitis, bilateral
CPT/HCPCS: 87880; 99212; 99214; G0463

== ENCOUNTER → 2023-03-25 16:36 | Outpatient (CLI) | payer BC, SELFPAY ==
--- NOTE | 2023-03-25 | XR_ITS ---
PROCEDURE INFORMATION: Exam: XR Right Hip Exam date and time: 03/25/2023 4:52 PM Age: 53 years old Clinical indication: Hip pain; Right hip; Additional info: Right hip pain TECHNIQUE: Imaging protocol: Radiologic exam of the right hip. Views: 2 or 3 views hip with pelvis when performed. COMPARISON: No relevant prior studies available. FINDINGS: Bones/joints: No acute fracture or malalignment. Soft tissues: Unremarkable. IMPRESSION: No acute osseous findings.
== END ==
PROVIDERS: PCP Nurse Practitioner Family; Visit Provider Nurse Practitioner Family
DX: M25.551 Pain in right hip (principal)
CPT/HCPCS: 73502

== ENCOUNTER → 2023-03-30 11:09 | Outpatient (CLI) | payer BC, SELFPAY ==
[2023-03-30 11:22] LABS: Basophils # 0.1 K/mm3 (0-0.2); Basophils % 1.1 % (0.1-2.0); Eosinophils % 0.5 % (0.1-12.0); Hematocrit 42.5 % (37.0-47.0); Hemoglobin 14.1 g/dL (12.2-16.2); Lymphocytes # 3.7 K/mm3 (0.7-4.5); Mean Corpuscular HGB Conc 33.3 g/dL (31.8-35.4); Mean Corpuscular Hemoglobin 29.7 pg (27.0-31.2); Mean Corpuscular Volume 89.3 fl (81-99); Mean Platelet Volume 7.4 fl (7.4-10.4); Monocytes # 0.4 K/mm3 (0.1-1.0); Monocytes % 5.6 % (1.7-9.3); Neutrophils # 3.6 K/mm3 (1.8-7.8); Neutrophils % 45.8 % (37.0-80.0); Platelet Count 385 K/mm3 (142-424); Red Blood Count 4.75 M/mm3 (4.20-5.40); Red Cell Distribution Width 13.5 % (11.5-17.5); White Blood Count 7.8 K/mm3 (4.8-10.8)
[2023-03-30 12:14] LABS: Alanine Aminotransferase 23 U/L (12-78); Albumin Level 4.1 g/dl (3.5-5.0); Albumin/Globulin Ratio 1.5 (1.1-1.8); Alkaline Phosphatase 56 U/L (38-126); Anion Gap 11.4 mEq/L (5-15); Aspartate Amino Transferase 23 U/L (14-36); Blood Urea Nitrogen 21 mg/dl (7-17); Calcium 9.3 mg/dl (8.4-10.2); Carbon Dioxide 34 mmol/L (22.0-30.0); Chloride 102 mmol/L (98-107); Chol/HDL Ratio 2.5 (1-3.5); Cholesterol 226 mg/dl (140-200); Estimated Glomerular Filt Rate 47 ml/min (>60); GFR (African American) 56 ML/MIN (>60); Globulin 2.8 g/dL (1.3-3.2); Glucose 96 mg/dl (74-100); HDL Cholesterol 90 mg/dl (40-60); Potassium 3.4 mmoL/L (3.5-5.1); Sodium 144 mmol/L (136-145); Total Protein,Serum 6.9 g/dl (6.3-8.2); Triglycerides 134 mg/dl (30-150); VLDL Cholesterol 27 mg/dL (0-40)
[2023-03-30 12:25] LABS: Direct LDL Cholesterol 98.67 mg/dL (100-129)
[2023-03-30 12:37] LABS: Bilirubin,Total 0.1 mg/dl (0.2-1.3)
== END ==
PROVIDERS: PCP Nurse Practitioner Family; Visit Provider Nurse Practitioner Family
DX: Z00.00 Encounter for general adult medical examination without abnormal findings (principal); E78.5 Hyperlipidemia, unspecified
CPT/HCPCS: 36415; 80053; 80061; 85025

== ENCOUNTER 2024-01-03 13:33 | Outpatient (CLI) | payer BC, SELFPAY ==
--- NOTE | 2024-01-03 13:35 | MR_ITS ---
FINAL REPORT CLINICAL HISTORY: RIGHT HIP PAIN COMPARISON: None FINDINGS: Multiplanar MR imaging of the right hip was performed without contrast. There is no evidence of fracture or dislocation. There is no evidence of avascular necrosis. No bony mass is identified. No labral tear is identified. No significant joint effusion is seen. There is distal gluteus minimus and gluteus medius peritendinitis without a well-defined tear. The musculature is intact. No soft tissue mass or cyst is identified. A small amount of free fluid is present in the pelvis, likely reactive. IMPRESSION: Distal gluteus minimus and gluteus medius peritendinitis without well-defined tears. Small amount of free fluid in the pelvis, likely reactive. Reviewed, Interpreted and Dictated by Waldo Sheikh III, MD Transcribed by Taty Pate Authenticated and [facility]
== END 2024-01-03 23:59 | disposition home or self-care (01) ==
LOC: RAD 13:33
PROVIDERS: PCP Nurse Practitioner Family; Visit Provider Internal Medicine Adolescent Medicine
DX: M25.551 Pain in right hip (principal)
CPT/HCPCS: 73721

== ENCOUNTER 2024-03-19 17:00 | Outpatient (RCR) | payer BC, SELFPAY ==
--- NOTE | 2024-01-16 16:44 | HMH.PTOPEV ---
PT Outpatient Evaluation Rehab PT Outpatient Evaluation Start: 01/16/24 15:53 Freq: Status: Active Protocol: Document 01/16/24 15:53 KARINSHAMEKA (Rec: 01/16/24 16:43 DOMINIC [id number]) E-signed By Beth Tucker, PT Outpatient Therapy Subjective History Subjective History Pt is a 53 y/o female who reports onset of R anterior groin pain in November after she pivoted towards the right on her right leg. Pt reports pain was sharp and brief in nature but has been occurring intermittently since. Pt denies bruising, swelling, catching or a locking sensation. Pt reports pain seems random in nature and may occur more with crossing her legs and performing a deep squat. Pt reports she experiences sharp groin pain at least once daily and it is brief lasting ~10 minutes and improves with rest. Pt reports pain is often severe making weightbearing on the RLE difficult and causing a sense of giving way of the right leg . Pt denies falls due to this. Pt reports she was prescribed a steroid pack at the beginning of December that she states helped with pain. Pt had a R hip MRI on 01/03/24 with impression of Distal gluteus minimus and gluteus medius peritendinitis without well-defined tears. Small amount of free fluid in the pelvis, likely reactive. Pt denies back pain, paresthesia or b/b dysfunction. Pt denies further comorbidities to report. New diagnosis of cancer in past 12 No months? Chief Complaint Pain,Weakness Symptom Type Ache,Sharp,Dull Symptoms Relieved By Rest/Positioning,Prescription Meds Symptoms Aggravated By Physical Activity,Twisting, Walking Current Functional Limitations Squatting,Walking,Stairs Symptom Description Intermittent Level of pain today (0-10) 2 Pain scale - at its best (0-10) 0 Pain scale - at its worst (0-10) 10 Hip/Knee Eval Gait Observation General Gait Pattern Observation Antalgic Gait,Decrease Weight Bear (R) Assistive Device Assistive Devices None / NA Palpation Tenderness right Knee Palpation Overall Comment AIIS, rectus femoris, hip adductor mm 2/4 TTP Hip Palpation Findings Tenderness MMT Hip Flexion Strength Grade 4- Good- Hip Abduction Strength Grade 4- Good- Hip Adduction Strength Grade 4 Good Hip Extension Strength Grade 4- Good- Knee Extension Strength Grade 5 Normal Knee Flexion Strength Grade 4 Good ROM Hip Flexion w/Knee Flexed Active Range 120 p! of Motion (degrees) Hip External Rotation Active Range of 45 Motion (degrees) Hip Internal Rotation Active Range of 45 Motion (degrees) Special Tests Hip Scouring (Quadrant) Test Negative Right Renato Test Negative Lower Extremity Functional Index Activities Today, do you or would you have any difficulty at all with: a.Any of your usual work, housework or A little bit of difficulty school activities b. Your usual hobbies, recreational or A little bit of difficulty sporting activities c. Getting into or out of the bath A little bit of difficulty d. Walking between rooms No difficulty e. Putting on your shoes or socks No difficulty f. Squatting A little bit of difficulty g. Lifting an object, like a bag of No difficulty groceries from the floor h. Performing light activities around No difficulty your home i. Performing heavy activities around A little bit of difficulty your home j. Getting into or out of a car A little bit of difficulty k. Walking 2 blocks A little bit of difficulty l. Walking a mile A little bit of difficulty m. Going up or down 10 stairs (about 1 No difficulty flight of stairs) n. Standing for 1 hour A little bit of difficulty o. Sitting for 1 hour A little bit of difficulty p. Running on even ground A little bit of difficulty q. Running on uneven ground Moderate difficulty r. Making sharp turns while running fast A little bit of difficulty s. Hopping A little bit of difficulty t. 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 4-6 Decreased Palpation Tenderness Yes: 0-1/4 TTP of R anterior hip complex Increase Strength Yes: Improve R hip MMT to 4+/5 grossly to assist with function Improve Gait Pattern without Assistive Yes: non-antalgic to decrease Device fall risk Improve LEFI Score Yes: Improve score to 74/80 to improve overall QOL Decrease Subjective C/O Pain Yes: Improve pain at worst to 6/10 to improve overall QOL Outpatient Therapy Plan of Care Treatment Plan May Include Therapeutic Exercise Including Home Yes Exercise Program Manual Therapy Techniques Yes Neuromuscular Re-education Yes Therapeutic Activities to Return to Yes Previous Functional/Work Level ADL/Self Care Education Yes Dry Needling Yes Thermal Modalities Yes Electrical Stimulation Yes Ultrasound/Phonophoresis Yes Iontophoresis Yes Massage Yes Eval/Re-Eval Yes Frequency Times per week 2 Duration Number of Weeks 4-6 Addendums This patient is a candidate for social No or vocational rehab? Patient/Guardian verbally acknowledges Yes understanding of treatment program and consents to further treatment? Patient/Guardian verbally acknowledges Yes understanding of diagnosis, prognosis and goals for treatment? Eval Complexity PT Charges 06183 - Low Complexity Shoulder/Elbow Eval Shoulder Objective Measurements Elbow Objective Measurements PHYSICIAN CERTIFICATION: I certify the specified therapy services for Chaim Sevilla are required, authorized, and reviewed every 30 days.
--- NOTE | 2024-02-13 18:10 | HMH.RHREAS ---
Rehab Reassessment Rehab OP Re-assessment Start: 01/16/24 15:53 Freq: Status: Active Protocol: Document 02/13/24 17:06 KARINSHAMEKA (Rec: 02/13/24 18:10 DOMINIC [id number]) E-signed By Beth Tucker PT Lower Extremity Functional Index Activities Today, do you or would you have any difficulty at all with: a.Any of your usual work, housework or A little bit of difficulty school activities b. Your usual hobbies, recreational or A little bit of difficulty sporting activities c. Getting into or out of the bath No difficulty d. Walking between rooms No difficulty e. Putting on your shoes or socks No difficulty f. Squatting Moderate difficulty g. Lifting an object, like a bag of No difficulty groceries from the floor h. Performing light activities around No difficulty your home i. Performing heavy activities around A little bit of difficulty your home j. Getting into or out of a car A little bit of difficulty k. Walking 2 blocks Moderate difficulty l. Walking a mile Moderate difficulty m. Going up or down 10 stairs (about 1 A little bit of difficulty flight of stairs) n. Standing for 1 hour A little bit of difficulty o. Sitting for 1 hour A little bit of difficulty p. Running on even ground A little bit of difficulty q. Running on uneven ground Moderate difficulty r. Making sharp turns while running fast A little bit of difficulty s. Hopping A little bit of difficulty t. Rolling over in bed A little bit of difficulty LEFI Score Lower Extremity Functional Index Score 61 Rehab Re-assessment Subjective Subjective Pt reports she feels 50-60% improved since starting PT. Pt reports continued R anterior hip/groin pain with activities such as squatting and pivoting. Pt reports she experiences a brief, sharp pain with those activities that only lasts seconds. Pt reports this occurs less often than it did prior to starting PT. Pt reports pain on average as 1-2/10 on VAS at the end of the day. Pt reports overall compliance with HEP. Objective Objective Notes RLE palpation: 05/23 TTP of adductor mm R hip AROM: WNL, p! at end range hip flexion and abduction R hip strength: flexion 4-/5, extension 4-/5, abduction 4/5 , adduction 4/5 , IR 4/5, ER 4 /5 Assessment Progress Assessment Progressing as Expected Assessment Notes Pt has attended 8 PT treatment sessions consisting of aerobic exercise, hip mobility , LE stretching/strengthening, and HEP with good tolerance. Pt demonstrated slight improvement in hip strength and decreased frequency of brief, sharp groin pain this date compared to the initial evaluation. Overall, the pt would continue to benefit from skilled PT to further improve subjective report of pain, LE strength, and functional activity tolerance to improve overall QOL. Patient goals met ST/3 Goals Not Met p! at worst, LTG Revised Goals n/a Plan Plan Continue initial POC Frequency of Therapy 2x/week Duration of therapy 4 more weeks Time and Billing Re-Eval Time 10 Re-Eval Billing Units 1 PHYSICIAN CERTIFICATION: I certify the specified therapy services for Chaim Sevilla are required, authorized, and reviewed every 30 days.
--- NOTE | 2024-03-19 18:00 | HMH.RHREAS ---
Rehab Reassessment Rehab OP Re-assessment Start: 01/16/24 15:53 Freq: Status: Active Protocol: Document 03/19/24 17:10 DOMINIC (Rec: 03/19/24 17:59 DOMINIC [id number]) E-signed By Beth Tucker PT Lower Extremity Functional Index Activities Today, do you or would you have any difficulty at all with: a.Any of your usual work, housework or No difficulty school activities b. Your usual hobbies, recreational or No difficulty sporting activities c. Getting into or out of the bath No difficulty d. Walking between rooms No difficulty e. Putting on your shoes or socks No difficulty f. Squatting A little bit of difficulty g. Lifting an object, like a bag of No difficulty groceries from the floor h. Performing light activities around No difficulty your home i. Performing heavy activities around A little bit of difficulty your home j. Getting into or out of a car No difficulty k. Walking 2 blocks No difficulty l. Walking a mile No difficulty m. Going up or down 10 stairs (about 1 No difficulty flight of stairs) n. Standing for 1 hour No difficulty o. Sitting for 1 hour A little bit of difficulty p. Running on even ground A little bit of difficulty q. Running on uneven ground A little bit of difficulty r. Making sharp turns while running fast A little bit of difficulty s. Hopping A little bit of difficulty t. 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 Overall, she states she feels 100% improved since starting PT. Pt reports she no longer has sharp, brief pain of her R hip/groin. Pt reports mild groin tightness with certain activities such as pivoting/ twisting and rates pain at worst as 2/10 on VAS. Pt reports her legs feel stronger overall and she is able to do all functional activities without pain or issues. Objective Objective Notes R hip AROM: WNL R hip strength: hip flexion 5/ 5, hip extension 4+/5, hip abduction 5/5, hip adduction 5 /5, Assessment Progress Assessment Progressing as Expected Assessment Notes Pt has attended 13 PT treatment sessions consisting of aerobic exercise, hip mobility, LE stretching/ strengthening, and HEP with good tolerance. Pt demonstrated improve tenderness to palpation, subjective report of pain, LE strength and LEFS score this date compared to the previous reassessment. Overall the pt met most PT goals and is appropriate to discharge to independent HEP at this time. Patient goals met ST LT/5 Goals Not Met LEFS score Revised Goals n/a Plan Plan Discharge to independent HEP Time and Billing Re-Eval Time 12 Re-Eval Billing Units 1 Charge for PT reassessment? Yes Charge for OT reassessment? No PHYSICIAN CERTIFICATION: I certify the specified therapy services for Chaim Sevilla are required, authorized, and reviewed every 30 days.
== END 2024-03-19 23:59 | disposition home or self-care (01) ==
LOC: PT 17:00
PROVIDERS: Visit Provider Internal Medicine Adolescent Medicine
DX: M25.551 Pain in right hip (principal)
CPT/HCPCS: 97110; 97163; 97164

== ENCOUNTER 2024-06-27 09:54 | Outpatient (CLI) | payer BC, SELFPAY ==
[2024-06-27 10:18] LABS: Basophils % 0.5 % (0.1-2.0); Eosinophils # 0.1 K/mm3 (0.0-0.4); Eosinophils % 1.6 % (0.1-12.0); Hematocrit 38.6 % (37.0-47.0); Hemoglobin 12.5 g/dL (12.2-16.2); Lymphocytes # 2.4 K/mm3 (0.7-4.5); Lymphocytes % 42.2 % (10-50); Mean Corpuscular HGB Conc 32.4 g/dL (31.8-35.4); Mean Corpuscular Volume 86.5 fl (81-99); Mean Platelet Volume 8.6 fl (7.4-10.4); Monocytes # 0.4 K/mm3 (0.1-1.0); Monocytes % 6.6 % (1.7-9.3); Neutrophils # 2.8 K/mm3 (1.8-7.8); Neutrophils % 48.8 % (37.0-80.0); Platelet Count 281 K/mm3 (142-424); Red Blood Count 4.46 M/mm3 (4.20-5.40); White Blood Count 5.7 K/mm3 (4.8-10.8)
[2024-06-27 11:40] LABS: Albumin Level 4.2 g/dl (3.5-5.0); Chloride 106 mmol/L (98-107)
[2024-06-27 11:41] LABS: Potassium 4.3 mmoL/L (3.5-5.1); Sodium 143 mmol/L (136-145)
[2024-06-27 11:43] LABS: Alanine Aminotransferase 17 U/L (12-78); Aspartate Amino Transferase 25 U/L (14-36); Blood Urea Nitrogen 8 mg/dl (7-17); Estimated Glomerular Filt Rate 74 ml/min (>60); GFR (African American) 90 ML/MIN (>60)
[2024-06-27 11:44] LABS: Albumin/Globulin Ratio 1.8 (1.1-1.8); Alkaline Phosphatase 47 U/L (38-126); Anion Gap 9.3 mEq/L (5-15); Bilirubin,Total 0.3 mg/dl (0.2-1.3); Calcium 9.4 mg/dl (8.4-10.2); Carbon Dioxide 32 mmol/L (22.0-30.0); Chol/HDL Ratio 2.4 (1-3.5); Cholesterol 168 mg/dl (140-200); Globulin 2.3 g/dL (1.3-3.2); Glucose 88 mg/dl (74-100); HDL Cholesterol 71 mg/dl (40-60); Total Protein,Serum 6.5 g/dl (6.3-8.2); Triglycerides 56 mg/dl (30-150); VLDL Cholesterol 11 mg/dL (0-40)
[2024-06-27 11:57] LABS: Direct LDL Cholesterol 66.97 mg/dL (100-129)
== END 2024-06-27 23:59 | disposition home or self-care (01) ==
LOC: LAB 09:56
PROVIDERS: PCP Nurse Practitioner Family; Visit Provider Nurse Practitioner Family
DX: Z00.00 Encounter for general adult medical examination without abnormal findings (principal)
CPT/HCPCS: 36415; 80053; 80061; 85025

== ENCOUNTER 2025-03-11 14:46 | Outpatient (RCR) | payer BC, SELFPAY ==
--- NOTE | 2025-03-11 15:17 | HMH.OTOPEV ---
OT Evaluation Rehab OT Outpatient Eval Start: 03/11/25 15:01 Freq: Status: Active Protocol: Document 03/11/25 15:01 SHAMIKA (Rec: 03/11/25 15:17 [email or web address] [id number]) E-signed By Ray Carvalho, OT Outpatient Therapy Subjective History Subjective History Patient presents to outpatient occupational therapy services with reports of right shoulder pain. Patient is right-hand dominant with a prior history of adhesive capsulitis of the left shoulder, previously treated in this clinic. Patient reports the onset of right shoulder pain approximately two months ago, with no known mechanism of injury. Pain is primarily elicited with reaching across the body. On evaluation, patient demonstrates a slight decrease in active range of motion and strength of the right shoulder compared to the left. No visible swelling or deformity noted. Patient will continue to receive skilled occupational therapy services two times per week to address identified deficits in range of motion, strength, and functional use of the right upper extremity for daily activities. New diagnosis of No cancer in past 12 months? Chief Complaint Pain,Stiff Symptom Type Ache,Throb,Sharp,Dull Prior Functional None Limitations Current Functional Reaching,Lifting,Housework,Dressing Limitations Symptom Description Intermittent,Activity Dependent Level of pain today 0 (0-10) Pain scale - at its 0 best (0-10) Pain scale - at its 3 worst (0-10) Shoulder/Elbow Eval Shoulder Objective Measurements Shoulder ROM Right Shoulder Abduction 145 Active Range of Motion (degrees) Shoulder Flexion 144 Active Range of Motion (degrees) Query Text: Shoulder External 82 Rotation Active Range of Motion ( degrees) Shoulder Internal 45 Rotation Active Range of Motion ( degrees) Shoulder MMT Shoulder Abduction 4- Good- Strength Grade Shoulder Flexion 4- Good- Strength Grade Shoulder External 4- Good- Rotation Strength Grade Shoulder Internal 4- Good- Rotation Strength Grade Shoulder Strength Sitting Patient Testing Position Elbow Objective Measurements QuickDASH Activities Please rate your ability to do the following activities in the last week by selecting the number below the appropriate response. 1. Open a tight or Mild difficulty new jar. 2. Do heavy Mild difficulty transit authority police officer (e. g., wash gomez, floors). 3. Carry a shopping Mild difficulty bag or briefcase. 4. Wash your back. Mild difficulty 5. Use a knife to No difficulty cut food. 6. Recreational Mild difficulty activities in which you take some force or impact through your arm, shoulder, or hand (e.g., golf, hammering, tennis, etc.). 7. During the past Not at all week, to what extent has your arm, shoulder or hand problem interfered with your normal social activities with family, friends , neighbors or groups? 8. During the past Not limited at all week, were you limited in your work or other regular daily activites as a result of your arm, shoulder or hand problem? 9. Arm, shoulder or Mild hand pain. 10. Tingling (pins None and needles) in your arm, shoulder or hand. 11. During the past No difficulty week, how much difficulty have you had sleeping because of the pain in your arm, shoulder or hand? Quick DASH 17 OT Patient Goals OT Patient Goals OT Short Term 1. Pt will increase R shoulder flexion to 150 degrees Patient Goals in order to complete daily overhead tasks independently ~50% of the time. 2. Pt will increase R shoulder abduction to 150 degrees to complete upper body dressing independently ~ 50% of the time. 3. Pt will increase R shoulder ER/IR to 90 degrees (ER ) and 60 degrees (IR) in order to complete lower body dressing (putting on and taking off belt) independently ~50% of the time. 4. Pt will increase strength to 4/5 throughout R shoulder in order to complete heavier household tasks ( laundry, mopping, vacuuming) independently ~50% of the time. 5. Pt will verbalize decreased pain levels at worst in R shoulder to a 2/10 in order to complete daily ADLs independently ~50% of the time. 6. Pt will demonstrate improved endurance by completing R shoulder exercises for ~20 minutes prior to rest break in order to increase his tolerance for daily work activities. 7. Pt will demonstrate independence with HEP of AAROM exercises to increase overall functional use of R shoulder in daily activities ~75% of the time. OT Skilled Nursing Patient 1. Pt will increase R shoulder flexion to 160 degrees Goals in order to complete daily overhead tasks independently ~75% of the time. 2. Pt will increase R shoulder abduction to 160 degrees to complete upper body dressing independently ~ 75% of the time. 3. Pt will increase R shoulder ER/IR to 90 degrees (ER ) and 70 degrees (IR)in order to complete lower body dressing (putting on and taking off belt) independently ~75% of the time. 4. Pt will increase strength to 4+/5 throughout R shoulder in order to complete heavier household tasks ( laundry, mopping, vacuuming) independently ~75% of the time. 5. Pt will verbalize decreased pain levels at worst in R shoulder to a 1/10 in order to complete daily ADLs independently ~75% of the time. 6. Pt will demonstrate improved endurance by completing R shoulder exercises for ~30 minutes prior to rest break in order to increase his tolerance for daily work activities. 7. Pt will demonstrate independence with HEP of Rotator cuff strengthening exercises to increase overall functional use of R shoulder for daily activities ~90% of the time. OT Outpatient Assessment Impairments Problems/Impairments Palpation Tenderness,Impaired Range of Motion,Impaired Strength,Impaired Endurance,Impaired Lifting,Impaired Household Care,Impaired Work Activities,Subjective C/O Pain Prognosis Rehab Potential Good Clinical Impression Consistent with Yes Diagnosis Outpatient Therapy Plan of Care Treatment Plan May Include Therapeutic Exercise Yes Including Home Exercise Program Manual Therapy Yes Techniques Neuromuscular Re- Yes education Therapeutic Yes Activities to Return to Previous Functional/Work Level ADL/Self Care Yes Education Dry Needling Yes Thermal Modalities Yes Electrical Yes Stimulation Ultrasound/ Yes Phonophoresis Iontophoresis Yes Massage Yes Eval/Re-Eval Yes Frequency Times per week 2 Duration Number of Weeks 6 Addendums This patient is a No candidate for social or vocational rehab ? Patient/Guardian Yes verbally acknowledges understanding of treatment program and consents to further treatment? Patient/Guardian Yes verbally acknowledges understanding of diagnosis, prognosis and goals for treatment? Eval Complexity OT Charge 29098 - Moderate Complexity PHYSICIAN CERTIFICATION: I certify the specified therapy services for Chaim Sevilla are required, authorized, and reviewed every 30 days.
== END 2025-03-11 23:59 | disposition home or self-care (01) ==
LOC: OT 14:46
PROVIDERS: PCP Nurse Practitioner Family; Visit Provider Nurse Practitioner Family
DX: M25.511 Pain in right shoulder (principal)
CPT/HCPCS: 97166

== ENCOUNTER 2025-03-13 10:30 | Outpatient (CLI) | payer BC, SELFPAY ==
--- OUTSIDE RECORDS SUMMARY | 2025-03-13 10:34 | XMS_ITS ---
Author Organization Unknown ENCOUNTERS Encounter Performer Location Date Diagnosis Diagnosis Status Emergency [facility] Dwain [facility]) [address] [place] [address] [id number] [facility] Emergency [address] [place] [address] [phone] [facility] Emergency [address] [place] [address] [id number] CLAUDE *Note: Encounters from your own facility or health system may be excluded. Allergies, Adverse Reactions, Alerts Allergen Type Severity Identification Date Sulfa (Sulfonamide Antibiotics) drug allergy 0 20190223 Cephalosporins drug allergy 0 [id number] cefaclor drug allergy 0 [id number] Medications Name Date Quantity Days Supplied GPI Number
--- OUTSIDE RECORDS SUMMARY | 2025-03-13 10:34 | XMS_ITS | Clinical Summary ---
Author Organization [facility] Address [address] [place] [address] Care Team Providers Care Brake Tester Name Role Phone Mali Guerrero APRN Primary Care Provid er Allergies Active Allergy Reactions Criticality Noted Date Comments Cefaclor Rash Low 12/10/2024 Family History Medical History Relation Name Comments Breast cancer Maternal Grandmother Ovarian cancer Neg Hx Relation Name Status Comments Maternal Grandmother Social History Tobacco Use Types Packs/Day Years Used Date Smoking Tobacco: Never Assessed Abuse Screen Answer Date Recorded Unsafe at Home or Work/School Not on file Feels Threatened by Someone? Not on file 01/2023 Does Anyone Keep You from Co ntacting Others or Doint Things Outside the Home? Not on file 02/25/2023 Physical Sign of Abuse Present Not on file 1 Housing Stability Answer Date Recorded Current Living Arrangements Not on file 01/2023 Potentially Unsafe Housing Conditions Not on mary e 02/25/2023 Family and Community Support Answer Marcello e Recorded Help with Day-to-Day Activities Not on file 02/25/2023 Lonely or Isolated Not on file 02/25/2023 Employment Answer Date Recorded Do you want help finding or keeping work or a fareed b? Not on file 02/25/2023 Disabilities Answer Date Recorded Concentrating, Remembering, or Making Decisions Difficulty Not on file 02/25/2023 Doing Errands Independently Difficulty Not on fi le 02/25/2023 Education Answer Date Recorded Help with school or training? Not on file 10 /01/2023 Preferred Language Not on file 02/25/2023 Comments No Sex and Gender Information Value Date Recorded Sex Assigned at Not on file Legal Sex Female 10:55 AM EDT Gender Identity Not on file Sexual Orientation Not on file Plan of Treatment Health Maintenance Due Date Last Done Comments Annual Gynecologic Pelvic an d Breast Exam 1968 TDAP/TD VACCINES (1 - Tdap) 1987 COLOGUARD 2013 COLON CANCER SCREENING 5 YEA R SIGMOIDOSCOPY 2013 COLONOSCOPY [address] CANCER SCREENING 2013 [address] COLONOGRAPHY 2013 FECAL OCCULT BLOOD TEST 2013 FIT Testing (1 year) 2013 Pneumococcal Vaccine 50+ (1 of 1 - PCV) 2018 ZOSTER VACCINE (1 of 2) 2018 ANNUAL PHYSICAL 11/27/2024 HEPATITIS C SCREENING 11/27/2024 INFLUENZA VACCINE 12/18/2024 03/04/2024, , 03/27/2022, Additional history exists MAMMOGRAM 12/10/2026 12/10/2024, 05/2 12/2023, 11/14/2021, Additional history exists Procedures Procedure Name Priority Date/Time Associated Diagnosis Comments MAMMO SCREENING DIGITAL TOMOSYNTHESIS BILATERAL W CAD Routine 12/10/2024 3:42 PM EDT Encounter for screening mammogram for malignant neoplasm of breast from Last 3 Months or Most Recently Relevant to Health Maintenance Results * Mammo Screening Digital Tomosynthesis Bilateral With CAD (12/10/2024 3:42 PM EDT) Anatomical Region Laterality Modality Breast N/A Mammography 12/17/2024 9:00 AM EDT Impressions 12/17/2024 9:02 AM EDT No mammographic findings suspicious for malignancy. RECOMMENDATION: Continue annual screening mammography. BI-RADS CATEGORY 1, NEGATIVE. CAD was utilized. The standard false-negative rate of mammography is between 10% and 25%. Complex patterns or increased breast density will markedly elevate the false-negative rate of mammography. A letter, in lay terminology, with the results of this exam will be mailed to the patient. 12/17/2024 9:[address] Waleska Goldberg MD on Narrative 12/17/2024 9:02 AM EDT BILATERAL SCREENING MAMMOGRAM WITH TOMOSYNTHESIS: HISTORY: The patient has no personal history or significant family history of breast cancer and no focal breast complaints at the time of screening mammography. Her maternal grandmother was diagnosed with breast cancer. The patient has lost 22 pounds since her prior mammogram. TECHNIQUE: Bilateral CC and MLO low dose, full field digital mammographic images were obtained with tomosynthesis. COMPARISON: 10/07/2023, 11/06/2021, 03/20/2019, 11/08/2017, 06/21/2016 FINDINGS: There are scattered areas of fibroglandular density. The fibroglandular pattern is stable. There are no suspicious masses, worrisome calcifications, nonsurgical areas of architectural distortion, or other secondary signs of malignancy. us Sondra Carrera MD IMG MAMMOGRAPHY ORDERABLES Fi nal Result from Last 3 Months or Most Recently Relevant to Health Maintenance Insurance [place] [id number] [employer] Care Teams Brake Tester Relationship Specialty Start Date End Date Mali Guerrero APRN [address] [facility] [address] [place] [id number] PCP - General Family Medicine 06/11/16
[2025-03-13 12:23] LABS: Hematocrit 40.7 % (37.0-47.0); Hemoglobin 13.3 g/dL (12.2-16.2); Immature Granulocytes % 0.2 %; Mean Corpuscular HGB Conc 32.7 g/dL (31.8-35.4); Mean Corpuscular Hemoglobin 28.3 pg (27.0-31.2); Mean Corpuscular Volume 86.6 fl (81-99); Nucleated Red Blood Cells % 0 %; Platelet Count 275 K/mm3 (142-424); Red Blood Count 4.70 M/mm3 (4.20-5.40); Red Cell Distribution Width-SD 40.1 fL; White Blood Count 4.6 K/mm3 (4.8-10.8)
[2025-03-13 14:22] LABS: 25-OH Vitamin D, Total 53.5 ng/mL (30-100)
[2025-03-13 14:37] LABS: Thyroid Stimulating Hormone 1.11 uIU/mL (0.465-4.68)
[2025-03-13 14:47] LABS: Alanine Aminotransferase 19 U/L (12-78); Albumin Level 4.1 g/dl (3.5-5.0); Albumin/Globulin Ratio 1.3 (1.1-1.8); Alkaline Phosphatase 54 U/L (38-126); Anion Gap 12.2 mEq/L (5-15); Aspartate Amino Transferase 25 U/L (14-36); Bilirubin,Total 0.4 mg/dl (0.2-1.3); Blood Urea Nitrogen 11 mg/dl (7-17); Calcium 9.2 mg/dl (8.4-10.2); Carbon Dioxide 28 mmol/L (22.0-30.0); Chloride 103 mmol/L (98-107); Creatine Kinase 76 U/L (30-135); Creatinine,Serum 0.90 mg/dl (0.52-1.04); Estimated Glomerular Filt Rate 65 ml/min (>60); GFR (African American) 78 ML/MIN (>60); Globulin 3.2 g/dL (1.3-3.2); Glucose 97 mg/dl (74-100); Potassium 4.2 mmoL/L (3.5-5.1); Sodium 139 mmol/L (136-145); Total Protein,Serum 7.3 g/dl (6.3-8.2)
[2025-03-13 14:53] LABS: C-Reactive Protein 0.9 mg/L (0-4)
== END 2025-03-13 23:59 | disposition home or self-care (01) ==
PROVIDERS: PCP Nurse Practitioner Family; Visit Provider Nurse Practitioner Family
DX: Z00.00 Encounter for general adult medical examination without abnormal findings (principal); M25.511 Pain in right shoulder; N18.31 Chronic kidney disease, stage 3a; M79.10 Myalgia, unspecified site
CPT/HCPCS: 80053; 82306; 82550; 84443; 85025; 85651; 86140

== ENCOUNTER 2025-04-14 11:00 | Outpatient (RCR) | payer BC, SELFPAY | END 2025-04-14 23:59 | disposition home or self-care (01) | LOC: OT 11:00 | PROVIDERS: PCP Nurse Practitioner Family; Visit Provider Nurse Practitioner Family | DX: M25.511 Pain in right shoulder (principal) | CPT/HCPCS: 97014; 97110; 97140; G0283 ==

== ENCOUNTER 2025-04-23 16:51 | Outpatient (CLI) | payer BC, SELFPAY ==
--- OUTSIDE RECORDS SUMMARY | 2025-04-23 16:53 | XMS_ITS | Clinical Summary ---
Author Organization [facility] Address [address] [place] [address] Care Team Providers Care Navy Diver Name Role Phone Mali Guerrero APRN Primary [...] Recently Relevant to Health Maintenance Insurance [place] [id number] [employer] Care Teams Navy Diver Relationship Specialty Start Date End Date Mali Guerrero APRN [address] [facility] [address] [place] [id number] PCP - General Family Medicine 06/11/16
--- NOTE | 2025-04-23 17:08 | XR_ITS ---
PROCEDURE INFORMATION: Exam: XR Right Shoulder Exam date and time: 04/23/2025 4:58 PM Age: 55 years old Clinical indication: Pain; Shoulder; Right; Additional info: Right shoulder pain TECHNIQUE: Imaging protocol: Radiologic exam of the right shoulder. Views: 2 or more views. COMPARISON: CR XR CHEST 2V 08/21/2021 4:27 PM FINDINGS: Bones/joints: No acute fracture or dislocation. No significant degenerative changes. Soft tissues: Unremarkable. IMPRESSION: Unremarkable right shoulder radiographs.
== END 2025-04-23 23:59 | disposition home or self-care (01) ==
LOC: RAD 16:52
PROVIDERS: PCP Nurse Practitioner Family; Visit Provider Nurse Practitioner Family
DX: M25.511 Pain in right shoulder (principal)
CPT/HCPCS: 73030

== ENCOUNTER 2025-04-30 15:11 | Outpatient (CLI) | payer BC, SELFPAY ==
--- NOTE | 2025-04-30 15:13 | MR_ITS ---
FINAL REPORT CLINICAL HISTORY: PAIN IN JOINT RT SHOULDER patient said it feels like frozen shoulder limited rom COMPARISON: None FINDINGS: Multi planar MR imaging of the right shoulder was performed. There is marrow edema in the distal clavicle and acromion. The supraspinatus tendon appears intact. There is no abnormal fluid in the subacromial/subdeltoid bursa. The anterior and posterior glenoid priyank appear intact. Subscapularis tendon is intact. The biceps tendon appears intact. Thickening of the inferior joint capsule could be related to underlying history of frozen shoulder. There are mild hypertrophic changes of the acromioclavicular joint. IMPRESSION: No supraspinatus tendon tear. Capsular thickening, possibly due to frozen shoulder. Mild hypertrophic changes of the AC joint with marrow edema. Can not exclude an element of ligamentous instability. Reviewed, Interpreted and Dictated by hCad Ervin MD Transcribed by Jerrica Mcneil Authenticated and [facility]
== END 2025-04-30 23:59 | disposition home or self-care (01) ==
PROVIDERS: PCP Nurse Practitioner Family; Visit Provider Nurse Practitioner Family
DX: M19.011 Primary osteoarthritis, right shoulder (principal); R93.6 Abnormal findings on diagnostic imaging of limbs
CPT/HCPCS: 73221

== ENCOUNTER 2025-05-19 13:00 | Outpatient (RCR) | payer BC, SELFPAY ==
--- NOTE | 2025-05-19 13:39 | HMH.RHREAS ---
Rehab Reassessment Rehab OP Re-assessment Start: 04/23/25 16:02 Freq: Status: Active Protocol: Document 05/19/25 13:06 JANKI (Rec: 05/19/25 13:39 JANKI [id number]) E-signed By Emilia Prakash OT QuickDASH Activities Please rate your ability to do the following activities in the last week by selecting the number below the appropriate response. 1. Open a tight or No difficulty new jar. 2. Do heavy No difficulty snout puller (e. g., wash gomez, floors). 3. Carry a shopping No difficulty bag or briefcase. 4. Wash your back. Mild difficulty 5. Use a knife to No difficulty cut food. 6. Recreational No difficulty activities in which you take some force or impact through your arm, shoulder, or hand (e.g., golf, hammering, tennis, etc.). 7. During the past Not at all week, to what extent has your arm, shoulder or hand problem interfered with your normal social activities with family, friends , neighbors or groups? 8. During the past Not limited at all week, were you limited in your work or other regular daily activites as a result of your arm, shoulder or hand problem? 9. Arm, shoulder or Mild hand pain. 10. Tingling (pins None and needles) in your arm, shoulder or hand. 11. During the past Mild difficulty week, how much difficulty have you had sleeping because of the pain in your arm, shoulder or hand? Quick DASH 14 Rehab Re-assessment Subjective Subjective I had an MRI and saw the ortho Objective Objective Notes Pt is a 55 female who is being seen for skilled OP OT services and interventions in order to address functional limitations in occupational performance to R shoulder due to frozen shoulder. Each session, pt is engaged in PROM, therapeutic exercises, and therapeutic modalities in order to address deficits and improve occupational performance. Assessment Progress Assessment Progressing as Expected Assessment Notes Pt is usually consistent with attending sessions, however pt has not been seen for 25 days. Pt reported they saw Ortho on 05/10 and received an injection to R shoulder. Pt has noted improvement in pain and AROM. Pt also had MRI on 04/30/25. The conclusion reported: FINDINGS: Multi planar MR imaging of the right shoulder was performed. There is marrow edema in the distal clavicle and acromion. The supraspinatus tendon appears intact. There is no abnormal fluid in the subacromial/subdeltoid bursa. The anterior and posterior glenoid priyank appear intact. Subscapularis tendon is intact. The biceps tendon appears intact. Thickening of the inferior joint capsule could be related to underlying history of frozen shoulder. There are mild hypertrophic changes of the acromioclavicular joint. IMPRESSION: No supraspinatus tendon tear. Capsular thickening, possibly due to frozen shoulder. Mild hypertrophic changes of the AC joint with marrow edema. Can not exclude an element of ligamentous instability. Pt is progressing well in flexion and abduction AROM, however ER and IR are still limited. Pt is also reporting pain at worst is a 5/10. Pt has expressed to therapy how they are not able to cross their arms at this time without significant pain. Measurements as of 04/08/25 ROM R shoulder: flexion- 170 degrees, Abd- 175 degrees, ER- 65 degrees, IR- 50 degrees Pain at worst: 5/10 Quick Dash Activities: 20 Goals met at 04/08/[address] Pt will increase R shoulder flexion to 150 degrees in order to complete daily overhead tasks independently ~50% of the time.:MET 2. Pt will increase R shoulder abduction to 150 degrees to complete upper body dressing independently ~ 50% of the time.:MET 7. Pt will demonstrate independence with HEP of AAROM exercises to increase overall functional use of R shoulder in daily activities ~75% of the time.: MET LT. Pt will increase R shoulder flexion to 160 degrees in order to complete daily overhead tasks independently ~75% of the time.: MET 2. Pt will increase R shoulder abduction to 160 degrees to complete upper body dressing independently ~ 75% of the time.: MET Measurements as of 05/19/25 R shoulder flexion: 180 degrees, abduction: 175 degrees , ER: 90 degrees, IR: 50 degrees Pain at worst: 2/10 QuickDash Activities: 14 STG Met: 3. Pt will increase R shoulder ER/IR to 90 degrees (ER ) in order to complete lower body dressing (putting on and taking off belt) independently ~50% of the time. 4. Pt will increase strength to 4/5 throughout R shoulder in order to complete heavier household tasks ( laundry, mopping, vacuuming) independently ~50% of the time. 5. Pt will verbalize decreased pain levels at worst in R shoulder to a 2/10 in order to complete daily ADLs independently ~50% of the time. 6. Pt will demonstrate improved endurance by completing R shoulder exercises for ~20 minutes prior to rest break in order to increase his tolerance for daily work activities. LTG MET: 3. Pt will increase R shoulder ER/IR to 90 degrees (ER ) in order to complete lower body dressing (putting on and taking off belt) independently ~50% of the time. OT Patient Goals OT Short Term 3. Pt will increase R shoulder 60 degrees (IR) in Patient Goals order to complete lower body dressing (putting on and taking off belt) independently ~50% of the time. OT Explosives Handler Patient 3. Pt will increase R shoulder 70 degrees (IR)in order Goals to complete lower body dressing (putting on and taking off belt) independently ~75% of the time. 4. Pt will increase strength to 4+/5 throughout R shoulder in order to complete heavier household tasks ( laundry, mopping, vacuuming) independently ~75% of the time. 5. Pt will verbalize decreased pain levels at worst in R shoulder to a 1/10 in order to complete daily ADLs independently ~75% of the time. 6. Pt will demonstrate improved endurance by completing R shoulder exercises for ~30 minutes prior to rest break in order to increase his tolerance for daily work activities. 7. Pt will demonstrate independence with HEP of Rotator cuff strengthening exercises to increase overall functional use of R shoulder for daily activities ~90% of the time. Plan Plan Continue OT POC at this time OT POC will include each session addressing functional limitations in occupational performance with skilled OT services and interventions such as therapeutic exercises, thermal and therapeutic modalities, and PROM to further address deficits listed above and improve overall occupational performance. Frequency of Therapy 1x/wk Duration of Therapy 4 more wks Therapeutic Exercise Yes Including Home Exercise Program Manual Therapy Yes Techniques Therapeutic Yes Activities to Return to Previous Functional/Work Level ADL/Self Care Yes Education Thermal Modalities Yes Electrical Yes Stimulation Ultrasound/ Yes Phonophoresis Iontophoresis Yes Parrafin Yes Orthotics/Bracing/ Yes Splinting Group Therapy for Yes Medicare Eval/Re-Eval Yes Time and Billing Charge for OT No reassessment? PHYSICIAN CERTIFICATION: I certify the specified therapy services for Chaim Di are required, authorized, and reviewed every 30 days.
== END 2025-05-19 23:59 | disposition home or self-care (01) ==
LOC: OT 13:00
PROVIDERS: PCP Nurse Practitioner Family; Visit Provider Nurse Practitioner Family
DX: M25.511 Pain in right shoulder (principal)
CPT/HCPCS: 97014; 97110; 97140; G0283